=== PATIENT | female | born 1970 | race Caucasian/White ===

== ENCOUNTER 2018-03-20 09:43 | Emergency (ER) | payer BC ==
[2018-03-20 10:38] LABS: BILIRUBIN,URINE NEGATIVE (NEG); CLARITY,URINE CLEAR; COLOR,URINE YELLOW; GLUCOSE,URINE NEGATIVE (NEG); NITRITE,URINE NEGATIVE (NEG); PH,URINE 6.5; PROTEIN,URINE NEGATIVE (NEG-TRACE); UROBILINOGEN,URINE 0.2 mg/dL (0.2 mg/dL)
[2018-03-20 10:46] LABS: BACTERIA,URINE MANY /HPF (0-FEW); SQUAMOUS EPITHELIAL CELL,UR MANY /LPF
[2018-03-20 10:47] LABS: WBC,URINE 20-40 /HPF (0-4)
[2018-03-20 10:49] LABS: ADD MAN DIFF? NO
[2018-03-20 10:52] LABS: BASO # 0.1 x10^3/uL (0.0-0.2); BASO % 1 % (0-3); EOS # 0.1 x10^3/uL (0.0-0.7); EOS % 1 % (0-3); HEMATOCRIT 40.6 % (36.0-47.0); HEMOGLOBIN 13.9 g/dL (12.0-15.5); LYMPH # 2.5 x10^3/uL (1.0-4.8); LYMPH % 28 % (24-48); MEAN CORPUSCULAR HEMOGLOBIN 28 pg (25-35); MEAN CORPUSCULAR HGB CONC 34 g/dL (31-37); MEAN CORPUSCULAR VOLUME 81 fL (79-100); MONO # 0.6 x10^3/uL (0.0-1.1); MONO % 7 % (0-9); NEUT # 5.4 x10^3uL (1.8-7.7); NEUT % 62 % (31-73); PLATELET COUNT 257 x10^3/uL (140-400); RED CELL DISTRIBUTION WIDTH 13.7 % (11.5-14.5); WHITE BLOOD COUNT 8.7 x10^3/uL (4.0-11.0)
[2018-03-20 11:00] LABS: ANION GAP 9 (6-14); BLOOD UREA NITROGEN 8 mg/dL (7-20); CALCIUM 9.4 mg/dL (8.5-10.1); CARBON DIOXIDE 30 mmol/L (21-32); CHLORIDE 101 mmol/L (98-107); CREATININE 0.6 mg/dL (0.6-1.0); GFR 106.3; GLUCOSE 116 mg/dL (70-99); POTASSIUM 3.2 mmol/L (3.5-5.1); SODIUM 140 mmol/L (136-145)
[2018-03-20 11:05] LABS: ALBUMIN 3.6 g/dL (3.4-5.0); ALK PHOS 180 U/L (46-116); ALT (SGPT) 54 U/L (14-59); AST (SGOT) 42 U/L (15-37); DIRECT BILIRUBIN 0.1 mg/dL (0.0-0.2); LIPASE 192 U/L (73-393); TOTAL BILIRUBIN 0.4 mg/dL (0.2-1.0); TOTAL PROTEIN 7.9 g/dL (6.4-8.2)
[2018-03-20 11:10] LABS: TROPONINI < 0.017 ng/mL (0.000-0.055)
[2018-03-20] MEDS ORDERED: LORazepam 0.5 MG TABLET PO (12:45)
[2018-03-20] MEDS: LORazepam 1 MG TABLET PO (12:56)
[2018-03-20] MEDS ORDERED: LIDOCAINE 1% PF 2 ML VIAL. ×2 (13:02→13:04)
[2018-03-20 13:44] LABS: CSF PROTEIN 45.5 mg/dL (15.0-45.0)
[2018-03-20 13:44] LABS: CSF GLUCOSE 68 mg/dL (37-70)
[2018-03-20 14:08] LABS: CSF CLARITY CLEAR; CSF COLOR COLORLESS; CSF RBC COUNT 0; CSF WBC COUNT 1
== END 2018-03-20 14:54 | disposition home or self-care (01) ==
LOC: ER 09:43
DX: G44.59 Other complicated headache syndrome (principal); I10 Essential (primary) hypertension; R20.0 Anesthesia of skin
CPT/HCPCS: 36415; 62270; 70450; 80048; 80076; 81001; 82945; 83690; 84157; 84484; 85025; 87071; 87075; 87086; 87205; 89051; 93005; 99285-25